=== PATIENT | female | born 2000 | race Asian ===

== ENCOUNTER 2022-10-28 11:45 | Emergency (ER) | payer OTHER ==
[~2022-10-28] VITALS: Ht 164 cm; Wt 60.0 kg
[2022-10-28 11:50] VITALS: BP 113/79
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
== END 2022-10-28 12:22 | disposition home or self-care (01) ==
LOC: ER 11:49 → EDBD 11:49 → ER 12:22
DX: S20.212A Contusion of left front wall of thorax, initial encounter (principal); V43.62XA Car passenger injured in collision with other type car in traffic accident, initial encounter; Y92.410 Unspecified street and highway as the place of occurrence of the external cause
CPT/HCPCS: 99285